=== PATIENT | female | born 1945 | race Caucasian/White ===

== ENCOUNTER → 2017-04-01 | Outpatient (CLI) | payer MEDICARE, BC | LOC: COL.VAS 10:53 | DX: I35.0 Nonrheumatic aortic (valve) stenosis (principal) ==

== ENCOUNTER → 2017-05-02 | Outpatient (CLI) | payer MEDICARE, BC | LOC: MC.RAD 11:13 | DX: Z12.31 Encounter for screening mammogram for malignant neoplasm of breast (principal) ==

== ENCOUNTER 2017-11-02 12:00 | Outpatient (RCR) | payer MEDICARE, BC | END 2017-11-16 09:14 | disposition home or self-care (01) | LOC: WSPT 12:00 | DX: M25.551 Pain in right hip (principal); M79.604 Pain in right leg | CPT/HCPCS: G8978-GP; G8979-GP ==

== ENCOUNTER 2018-03-07 12:45 | Outpatient (RCR) | payer MEDICARE, BC | END 2018-03-14 08:15 | disposition home or self-care (01) | LOC: WSPT 12:45 | DX: M25.511 Pain in right shoulder (principal) | CPT/HCPCS: G8984-GP; G8985-GP; G8986-GP ==

== ENCOUNTER → 2019-05-07 | Outpatient (CLI) | payer MEDICARE, BC | LOC: MC.RAD 10:21 | DX: Z12.31 Encounter for screening mammogram for malignant neoplasm of breast (principal) ==

== ENCOUNTER → 2019-08-16 | Outpatient (CLI) | payer MEDICARE, BC ==
[~2019-08-16] MED LIST: CELEBREX 200MG200 MG PO; CHOLESTOFF PLUS PO; FISH OIL 500 M1 EAC1 PO; LANOXIN 0.120.125 MG PO; MULTI VITAMINS1 TAB PO; PEPCID AC20 MG PO; TOPROL XL 50MG50 MG PO; VITAMIN D31000 I1 PO; VITAMINC1000TA PO
[2019-08-16 12:34] LABS: BASO % 0.4 % (0.0-2.0); EOS % 0.1 % (0-4.0); GRAN % 76.2 % (42.2-75.2); HEMOGLOBIN 11.4 g/dl (12.5-16.0); LYMPH # 1.7 (1.2-3.4); LYMPH % 15.7 % (20.0-51.0); MEAN CELL VOLUME 92 fl (80.0-100.0); MEAN CORPUSCULAR HEMOGLOBIN 30 pg (27.0-31.0); MEAN CORPUSCULAR HGB CONC 32 g/dl (33.0-37.0); MEAN PLATELET VOLUME 8.3 fl (7.4-10.4); MONO # 0.7 (0.1-0.6); PLATELET COUNT 366 K/mm3 (130-400); RED BLOOD COUNT 3.85 M/mm3 (4.10-5.30); REDCELL DISTRIBUTION WIDTH-CV 13.1 % (11.5-14.5)
[2019-08-16 12:36] LABS: HEMATOCRIT 35.5 % (37.0-47.0)
[2019-08-16 12:43] LABS: BILIRUBIN,TOTAL 0.4 mg/dL (0.0-1.0); CALCIUM 9.3 mg/dL (8.4-10.2); CREATININE, serum 0.72 (0.52-1.25); POTASSIUM 4.5 mmol/L (3.4-5.0); TOTAL PROTEIN 7.5 gm/dL (6.4-8.2)
[2019-08-20 13:48] LABS: OVA AND PARASITE XXX; TRICHROME STAIN XXX
== END ==
LOC: COL.RAD 10:23 → COL.LAB 12:02
PROVIDERS: Internal Medicine Infectious Disease
DX: C76.2 Malignant neoplasm of abdomen (principal); C79.89 Secondary malignant neoplasm of other specified sites; C78.7 Secondary malignant neoplasm of liver and intrahepatic bile duct; C78.6 Secondary malignant neoplasm of retroperitoneum and peritoneum; D73.89 Other diseases of spleen; M89.9 Disorder of bone, unspecified
CPT/HCPCS: Q9967

== ENCOUNTER → 2019-08-27 | Outpatient (CLI) | payer MEDICARE, BC ==
[~2019-08-27] MED LIST changes: +NORCO 325 MG-51 TAB PO
== END ==
LOC: COL.RAD 14:42
DX: C56.2 Malignant neoplasm of left ovary (principal); C78.6 Secondary malignant neoplasm of retroperitoneum and peritoneum; M89.9 Disorder of bone, unspecified
CPT/HCPCS: Q9967

== ENCOUNTER 2019-08-30 06:29 | Day surgery (SDC) | payer MEDICARE, BC ==
[~2019-08-30] VITALS: Ht 152.4 cm; Wt 58.5 kg
[~2019-08-30 06:29] MED LIST changes: -NORCO 325 MG-51 TAB PO
[2019-08-30 07:34] VITALS: BP 131/73; PULSE 88; TEMP 97.3
[2019-08-30] MEDS ORDERED: NORCO 325 MG-51 TAB PO (09:26)
[2019-08-30 09:27] VITALS: BP 102/66; PULSE 75; TEMP 97.6
--- NOTE | 2019-08-30 09:27 | NUR ---
Pt to [facility] via cart from [place]. Pt awake and alert. Denies pain or nausea. Dressing and bandaid to right chest is clean, dry, and intact. Water and jello given per pt request. Neice in room. Will continue to monitor. Call light within reach.
[2019-08-30 09:45] VITALS: BP 107/55; PULSE 79
--- NOTE | 2019-08-30 09:45 | NUR ---
Pt continues to rest. Denies pain or nausea. Visiting with neice. Denies needs. Call light within reach.
[2019-08-30 09:57] VITALS: BP 113/59; PULSE 71
--- NOTE | 2019-08-30 09:57 | NUR ---
Pt tolerating food and PO fluids. Denies needs. Call light within reach.
[2019-08-30 10:12] VITALS: BP 115/61; PULSE 78
--- NOTE | 2019-08-30 10:12 | NUR ---
Pt continues to rest. Denies needs. Call light within reach.
[2019-08-30 10:30] VITALS: BP 118/60; PULSE 79
--- NOTE | 2019-08-30 10:30 | NUR ---
Pt continues to rest. Denies needs. Call light within reach.
--- NOTE | 2019-08-30 10:40 | NUR ---
Discharge instructions reviewed. Pt voids without difficulties. IV site discontinued with all parts intact. Pt up to dress. Call light within reach.
--- NOTE | 2019-08-30 10:50 | NUR ---
Pt escorted to private car via wheel chair. Pt accompanied home by her ty.
== END 2019-08-30 10:50 | disposition home or self-care (01) ==
LOC: SDCO 06:29
DX: C56.2 Malignant neoplasm of left ovary (principal); C78.6 Secondary malignant neoplasm of retroperitoneum and peritoneum; I35.0 Nonrheumatic aortic (valve) stenosis; E78.00 Pure hypercholesterolemia, unspecified; I48.91 Unspecified atrial fibrillation; Z87.891 Personal history of nicotine dependence; Z83.3 Family history of diabetes mellitus
CPT/HCPCS: C1788; J0690; J1644; J2704; J3010; J7120

== ENCOUNTER → 2019-10-17 | Outpatient (CLI) | payer MEDICARE, BC ==
[~2019-10-17] MED LIST changes: +NORCO 325 MG-51 TAB PO
== END ==
LOC: COL.RAD 14:10
DX: C56.2 Malignant neoplasm of left ovary (principal); R51 Headache
CPT/HCPCS: A9585

== ENCOUNTER → 2019-10-31 | Outpatient (CLI) | payer MEDICARE, BC | LOC: COL.RAD 09:51 | DX: C56.2 Malignant neoplasm of left ovary (principal); M53.9 Dorsopathy, unspecified | CPT/HCPCS: Q9967 ==

== ENCOUNTER 2019-12-07 14:00 | Outpatient (RCR) | payer MEDICARE, BC ==
[2019-12-07] VITALS (9 sets, daily range): BP systolic 121–142; BP diastolic 54–80; PULSE 62–80; TEMP 97.8–98.8
[2019-12-07] MEDS ORDERED: MAG-OX 400400 MG/TAB PO (17:02)
[2019-12-07] MEDS ORDERED: IRON TABLETS325 MG PO (17:03)
== END 2019-12-07 18:25 | disposition home or self-care (01) ==
LOC: EUO 14:00
DX: C56.2 Malignant neoplasm of left ovary (principal); D64.9 Anemia, unspecified
CPT/HCPCS: J1644; J7050; P9040

== ENCOUNTER 2020-01-21 16:41 | Outpatient (RCR) | payer MEDICARE, BC ==
[2020-01-21] VITALS (7 sets, daily range): BP systolic 101–127; BP diastolic 62–73; PULSE 78–86; TEMP 98–98.2
[~2020-01-21 16:41] MED LIST changes: +IRON TABLETS325 MG PO; +MAG-OX 400400 MG/TAB PO
== END 2020-01-21 20:08 | disposition home or self-care (01) ==
LOC: EUO 16:41
DX: C56.2 Malignant neoplasm of left ovary (principal); C79.9 Secondary malignant neoplasm of unspecified site; D64.81 Anemia due to antineoplastic chemotherapy; D64.9 Anemia, unspecified
CPT/HCPCS: J7050; P9016

== ENCOUNTER 2020-01-28 14:18 | Outpatient (RCR) | payer MEDICARE, BC ==
[~2020-01-28] VITALS: Ht 152.4 cm; Wt 51.0 kg
[2020-01-28] VITALS (9 sets, daily range): BP systolic 92–1114; BP diastolic 52–78; PULSE 62–79; TEMP 97.6–98.1
== END 2020-01-28 20:29 | disposition home or self-care (01) ==
LOC: EUO 14:18
DX: C56.2 Malignant neoplasm of left ovary (principal); D63.0 Anemia in neoplastic disease
CPT/HCPCS: J7050; P9016

== ENCOUNTER 2020-02-12 08:49 | Outpatient (CLI) | payer MEDICARE, BC ==
[2020-02-12] VITALS (10 sets, daily range): BP systolic 102–119; BP diastolic 56–66; PULSE 70–76; TEMP 98.1–98.9
[2020-02-12] MEDS ORDERED: K-DUR20 MEQ PO (11:13)
[2020-02-12] MEDS ORDERED: COMPAZINE 110 MG/TAB PO (11:13)
== END 2020-02-12 16:00 | disposition home or self-care (01) ==
LOC: EUO 08:49
DX: C56.2 Malignant neoplasm of left ovary (principal); D64.9 Anemia, unspecified
CPT/HCPCS: J1644; J7050; P9016

== ENCOUNTER 2020-02-27 07:15 | Outpatient (RCR) | payer MEDICARE, BC ==
[2020-02-27] VITALS (10 sets, daily range): BP systolic 95–125; BP diastolic 58–71; PULSE 68–92; TEMP 98.1–98.4
[~2020-02-27] VITALS: Ht 152.4 cm; Wt 52.2 kg
[~2020-02-27 07:15] MED LIST changes: +COMPAZINE 110 MG/TAB PO; +K-DUR20 MEQ PO; +NATURAL IRON65 MG
--- NOTE | 2020-02-27 08:50 | NUR ---
Started 1st unit of PRBCs at this time. Pt resting bed, reviewed s/sx of a transfusion reaction. Started at 60ml/hr, will remain at bedside for 15minutes. Assessment revealed lungs are CTA bilaterally, HR is NSR, Abd bowel sounds are audible throughout, soft and nontender. 2+ radial pulses and pedal pulses. Blood infusing to PAC in RUC. Pt denies pain. Pt is pale from low hemoglobin but skin is warm and dry. Will continue to monitor.
--- NOTE | 2020-02-27 11:25 | NUR ---
Pt completed first unit of PRBCs at this time, no s/sx of a transfustion reaction, pt tolerated well, began 2nd unit of PRBCs, will remain at bedside for 15 minutes.
== END 2020-02-27 14:20 | disposition home or self-care (01) ==
LOC: EUO 07:15
DX: C56.2 Malignant neoplasm of left ovary (principal); D64.9 Anemia, unspecified
CPT/HCPCS: J1644; J7050; P9016

== ENCOUNTER 2020-03-18 12:45 | Outpatient (RCR) | payer MEDICARE, BC ==
[2020-03-18] VITALS (10 sets, daily range): BP systolic 108–138; BP diastolic 53–75; PULSE 66–86; TEMP 97.7–98.7
[~2020-03-18] VITALS: Ht 152.4 cm; Wt 53.3 kg
== END 2020-03-18 19:08 | disposition home or self-care (01) ==
LOC: EUO 12:45
DX: C56.2 Malignant neoplasm of left ovary (principal); C78.6 Secondary malignant neoplasm of retroperitoneum and peritoneum; C78.7 Secondary malignant neoplasm of liver and intrahepatic bile duct; D64.9 Anemia, unspecified
CPT/HCPCS: J1644; J7050; P9016

== ENCOUNTER 2020-04-15 09:09 | Outpatient (RCR) | payer MEDICARE, BC ==
[2020-04-15] VITALS (11 sets, daily range): BP systolic 107–123; BP diastolic 62–73; PULSE 62–84; TEMP 98.4–98.8
[~2020-04-15] VITALS: Ht 152.4 cm; Wt 55.1 kg
== END 2020-04-15 15:15 | disposition home or self-care (01) ==
LOC: EUO 09:09
DX: C56.2 Malignant neoplasm of left ovary (principal); C78.6 Secondary malignant neoplasm of retroperitoneum and peritoneum; C78.7 Secondary malignant neoplasm of liver and intrahepatic bile duct; D64.9 Anemia, unspecified
CPT/HCPCS: J1644; J7050; P9016

== ENCOUNTER 2020-05-06 07:20 | Outpatient (RCR) | payer MEDICARE, BC ==
[2020-05-06] VITALS (10 sets, daily range): BP systolic 100–129; BP diastolic 61–75; PULSE 66–75; TEMP 97.9–99.4
[~2020-05-06] VITALS: Ht 152.4 cm; Wt 55.3 kg
--- NOTE | 2020-05-06 13:20 | NUR ---
Pt tolerates transfusion of PRBCs without issue. PAC is DC'd after flushing and heparinizing per protocol. Pt ambulates from dept with steady gait.
== END 2020-05-06 13:20 | disposition home or self-care (01) ==
LOC: EUO 07:20
DX: C56.2 Malignant neoplasm of left ovary (principal)
CPT/HCPCS: J1644; J7050; P9016

== ENCOUNTER → 2020-05-13 | Outpatient (CLI) | payer MEDICARE, BC | LOC: MC.RAD 09:21 | DX: Z12.31 Encounter for screening mammogram for malignant neoplasm of breast (principal) ==

== ENCOUNTER 2020-06-06 14:54 | Emergency (ER) | payer MEDICARE, BC ==
[~2020-06-06] VITALS: Ht 152.4 cm; Wt 54.5 kg
[2020-06-06 14:59] VITALS: TEMP 98
[2020-06-06 16:49] LABS: MEAN CELL VOLUME 101 fl (80.0-100.0); MEAN CORPUSCULAR HGB CONC 34 g/dl (33.0-37.0); MEAN PLATELET VOLUME 9.7 fl (7.4-10.4); PLATELET COUNT 51 K/mm3 (130-400); RED BLOOD COUNT 2.36 M/mm3 (4.10-5.30); REDCELL DISTRIBUTION WIDTH-CV 17.2 % (11.5-14.5)
[2020-06-06 16:58] LABS: HEMATOCRIT 23.8 % (37.0-47.0); HEMOGLOBIN 8.1 g/dl (12.5-16.0); MEAN CORPUSCULAR HEMOGLOBIN 34 pg (27.0-31.0)
[2020-06-06 17:24] VITALS: BP 118/78; PULSE 85
== END 2020-06-06 17:24 | disposition home or self-care (01) ==
LOC: COL.ER 14:54
PROVIDERS: Physician Assistant
DX: D69.6 Thrombocytopenia, unspecified (principal)

== ENCOUNTER 2020-06-12 13:40 | Emergency (ER) | payer MEDICARE, BC ==
[~2020-06-12] VITALS: Ht 152.4 cm; Wt 53.6 kg
[2020-06-12 13:51] VITALS: BP 110/62; PULSE 82
== END 2020-06-12 15:30 | disposition home or self-care (01) ==
LOC: COL.ER 13:40
DX: D69.6 Thrombocytopenia, unspecified (principal); Z85.43 Personal history of malignant neoplasm of ovary; Z90.710 Acquired absence of both cervix and uterus; Z90.89 Acquired absence of other organs

== ENCOUNTER 2020-06-14 07:55 | Outpatient (RCR) | payer MEDICARE, BC ==
[~2020-06-14] VITALS: Ht 152.4 cm; Wt 54.0 kg
[2020-06-14] VITALS (10 sets, daily range): BP systolic 87–117; BP diastolic 50–66; PULSE 60–79; TEMP 97.8–98.3
[2020-06-14] MEDS ORDERED: LYNPARZA150 MG PO (10:16)
== END 2020-06-14 14:55 | disposition home or self-care (01) ==
LOC: EUO 07:55
DX: C56.2 Malignant neoplasm of left ovary (principal); C78.6 Secondary malignant neoplasm of retroperitoneum and peritoneum; C78.7 Secondary malignant neoplasm of liver and intrahepatic bile duct; D64.9 Anemia, unspecified
CPT/HCPCS: J1644; J7050; P9016

== ENCOUNTER 2020-07-23 08:00 | Outpatient (RCR) | payer MEDICARE, BC ==
[2020-07-23] VITALS (10 sets, daily range): BP systolic 97–115; BP diastolic 50–68; PULSE 66–80; TEMP 97.5–98.1
[~2020-07-23] VITALS: Ht 152.4 cm; Wt 54.0 kg
[~2020-07-23 08:00] MED LIST changes: +LYNPARZA150 MG PO
--- NOTE | 2020-07-23 13:50 | NUR ---
blood infused, port flushed per protocol, needle removed, pt discharged amb.
== END 2020-07-23 13:50 | disposition still patient (30) ==
LOC: EUO 08:00
DX: C56.2 Malignant neoplasm of left ovary (principal); Z95.9 Presence of cardiac and vascular implant and graft, unspecified
CPT/HCPCS: J7050; P9016

== ENCOUNTER 2020-08-20 08:23 | Outpatient (RCR) | payer MEDICARE, BC ==
[2020-08-20] VITALS (10 sets, daily range): BP systolic 87–110; BP diastolic 56–61; PULSE 63–77; TEMP 97.4–97.5
[~2020-08-20] VITALS: Ht 152.4 cm; Wt 55.8 kg
[~2020-08-20 08:23] MED LIST changes: +DUO-KAPS1 CAP PO; -MULTI VITAMINS1 TAB PO
== END 2020-08-20 14:10 | disposition home or self-care (01) ==
LOC: EUO 08:23
DX: C56.2 Malignant neoplasm of left ovary (principal); D64.81 Anemia due to antineoplastic chemotherapy; Z95.9 Presence of cardiac and vascular implant and graft, unspecified
CPT/HCPCS: J1644; J7050; P9016

== ENCOUNTER 2020-09-09 09:40 | Outpatient (CLI) | payer MEDICARE, BC ==
[~2020-09-09] VITALS: Ht 152.4 cm; Wt 55.0 kg
[2020-09-09] VITALS (9 sets, daily range): BP systolic 97–128; BP diastolic 60–74; PULSE 65–72; TEMP 97.7–98.2
[2020-09-09] MEDS ORDERED: LYNPARZA150 MG PO (11:35)
== END 2020-09-09 15:19 | disposition home or self-care (01) ==
LOC: EUO 09:40
DX: C56.2 Malignant neoplasm of left ovary (principal); C78.6 Secondary malignant neoplasm of retroperitoneum and peritoneum; C78.7 Secondary malignant neoplasm of liver and intrahepatic bile duct; D64.81 Anemia due to antineoplastic chemotherapy
CPT/HCPCS: J1644; J7050; P9016

== ENCOUNTER → 2020-09-26 | Outpatient (CLI) | payer MEDICARE, BC ==
[~2020-09-26] MED LIST changes: +CENTRUM1 TA1 PO; +DOXIL IV; +MVASI25 MG/1 ML IV; +[UNRECOGNIZED DRUG - OTHER] PO
== END ==
LOC: COL.VAS 09-11 13:30
DX: I35.0 Nonrheumatic aortic (valve) stenosis (principal); I31.3 Pericardial effusion (noninflammatory); I34.0 Nonrheumatic mitral (valve) insufficiency; I51.7 Cardiomegaly

== ENCOUNTER 2020-09-30 10:03 | Outpatient (RCR) | payer MEDICARE, BC ==
[~2020-09-30] VITALS: Ht 152.4 cm; Wt 55.3 kg
[2020-09-30] VITALS (9 sets, daily range): BP systolic 94–117; BP diastolic 57–71; PULSE 66–81; TEMP 97.5–98.9
[~2020-09-30 10:03] MED LIST changes: -CENTRUM1 TA1 PO; -DOXIL IV; -MVASI25 MG/1 ML IV; -[UNRECOGNIZED DRUG - OTHER] PO
== END 2020-09-30 15:51 | disposition home or self-care (01) ==
LOC: EUO 10:03
DX: D64.81 Anemia due to antineoplastic chemotherapy (principal); C56.2 Malignant neoplasm of left ovary; C78.6 Secondary malignant neoplasm of retroperitoneum and peritoneum
CPT/HCPCS: J1644; J7050; P9016

== ENCOUNTER 2021-04-07 09:00 | Outpatient (RCR) | payer MEDICARE, BC ==
[~2021-04-07] VITALS: Ht 152.4 cm; Wt 53.4 kg
[2021-04-07] VITALS (10 sets, daily range): BP systolic 103–143; BP diastolic 57–76; PULSE 16–79; TEMP 97.9–98.5
[2021-04-07] MEDS ORDERED: [UNRECOGNIZED DRUG - OTHER] PO (09:23)
[2021-04-07] MEDS ORDERED: CENTRUM1 TA1 PO (09:24)
[2021-04-07] MEDS ORDERED: DOXIL IV (09:28)
[2021-04-07] MEDS ORDERED: MVASI25 MG/1 ML IV (09:31)
--- NOTE | 2021-04-07 13:30 | NUR ---
Port deaccessed by [facility], pt ambulates from dept with steady gait.
== END 2021-04-07 13:30 | disposition home or self-care (01) ==
LOC: EUO 09:00
DX: Z45.2 Encounter for adjustment and management of vascular access device (principal); C56.2 Malignant neoplasm of left ovary; D64.81 Anemia due to antineoplastic chemotherapy
CPT/HCPCS: J1644; J7050; P9016

== ENCOUNTER 2021-05-01 08:30 | Outpatient (RCR) | payer MEDICARE, BC ==
[2021-05-01] VITALS (10 sets, daily range): BP systolic 88–137; BP diastolic 53–78; PULSE 66–83; TEMP 97.5–98.2
[~2021-05-01] VITALS: Ht 152.4 cm; Wt 53.7 kg
[~2021-05-01 08:30] MED LIST changes: +CENTRUM1 TA1 PO; +DOXIL IV; +MVASI25 MG/1 ML IV; +[UNRECOGNIZED DRUG - OTHER] PO
== END 2021-05-01 13:56 ==
LOC: EUO 08:30
DX: D64.81 Anemia due to antineoplastic chemotherapy (principal); C56.2 Malignant neoplasm of left ovary
CPT/HCPCS: J1644; J7050; P9016

== ENCOUNTER 2021-05-20 08:00 | Outpatient (RCR) | payer MEDICARE, BC ==
[2021-05-20] VITALS (9 sets, daily range): BP systolic 96–155; BP diastolic 62–79; PULSE 63–74; TEMP 97–98.5
== END 2021-05-20 12:00 | disposition home or self-care (01) ==
LOC: EUO 08:00
DX: D64.81 Anemia due to antineoplastic chemotherapy (principal); C56.2 Malignant neoplasm of left ovary; C78.6 Secondary malignant neoplasm of retroperitoneum and peritoneum; C78.7 Secondary malignant neoplasm of liver and intrahepatic bile duct
CPT/HCPCS: J1644; J7050; P9016

== ENCOUNTER → 2021-05-22 | Outpatient (CLI) | payer MEDICARE, BC | LOC: COL.VAS 13:23 | DX: I35.0 Nonrheumatic aortic (valve) stenosis (principal) ==

== ENCOUNTER → 2021-06-09 | Outpatient (CLI) | payer MEDICARE, BC | LOC: MC.RAD 09:41 | DX: Z12.31 Encounter for screening mammogram for malignant neoplasm of breast (principal) ==

== ENCOUNTER 2021-06-18 11:37 | Outpatient (RCR) | payer MEDICARE, BC ==
[2021-06-18] VITALS (9 sets, daily range): BP systolic 107–127; BP diastolic 62–97; PULSE 73–88; TEMP 97.7–98.7
--- NOTE | 2021-06-18 18:08 | NUR ---
Pt tolerated transfusions with no problem. She is amb to exit with steady gait.
== END 2021-06-18 18:11 | disposition home or self-care (01) ==
LOC: EUO 11:37
DX: Z45.2 Encounter for adjustment and management of vascular access device (principal); C56.2 Malignant neoplasm of left ovary; D64.81 Anemia due to antineoplastic chemotherapy; D64.9 Anemia, unspecified
CPT/HCPCS: J1644; J7050; P9016

== ENCOUNTER 2021-06-22 10:20 | Emergency (ER) | payer MEDICARE, BC ==
[~2021-06-22] VITALS: Ht 152.4 cm; Wt 52.3 kg
[2021-06-22 10:58] VITALS: TEMP 98.1
[2021-06-22] MEDS ORDERED: GEMCITABINE (11:17)
[2021-06-22] MEDS ORDERED: PROCRIT2000 (11:18)
[2021-06-22 12:21] VITALS: BP 128/772; PULSE 69
== END 2021-06-22 12:26 | disposition home or self-care (01) ==
LOC: COL.ER 10:20
DX: R04.0 Epistaxis (principal); C56.9 Malignant neoplasm of unspecified ovary; D64.9 Anemia, unspecified; D69.6 Thrombocytopenia, unspecified

== ENCOUNTER 2021-07-29 16:32 | Emergency (ER) | payer MEDICARE, BC ==
[~2021-07-29] VITALS: Ht 152.4 cm; Wt 54.5 kg
[~2021-07-29 16:32] MED LIST changes: +GEMCITABINE; +PROCRIT2000
[2021-07-29 16:42] VITALS: TEMP 97.6
[2021-07-29 18:56] VITALS: BP 142/74; PULSE 73
== END 2021-07-29 19:03 | disposition home or self-care (01) ==
LOC: COL.ER 16:32
DX: R04.0 Epistaxis (principal); C56.9 Malignant neoplasm of unspecified ovary; Z92.21 Personal history of antineoplastic chemotherapy

== ENCOUNTER 2021-08-17 15:04 | Outpatient (RCR) | payer MEDICARE, BC ==
[~2021-08-17] VITALS: Ht 152.4 cm; Wt 54.6 kg
[2021-08-18] VITALS (9 sets, daily range): BP systolic 108–130; BP diastolic 62–76; PULSE 76–91; TEMP 97.5–98.4
== END 2021-08-18 19:53 | disposition home or self-care (01) ==
LOC: EUO
DX: C56.2 Malignant neoplasm of left ovary (principal)
CPT/HCPCS: J1644; J7050; P9016